=== PATIENT | male | born 1955 | race Caucasian/White ===

== ENCOUNTER 2017-03-02 11:27 | Emergency (ER) | payer MEDICAID ==
[~2017-03-02] VITALS: Ht 172.7 cm; Wt 82.0 kg
[~2017-03-02 11:27] MED LIST: CLIN-79 PO; CLIN-80 PO
[2017-03-02 11:38] VITALS: BP 154/91
[2017-03-02] MEDS ORDERED: erythromycin ophthalmic ointment 1gm tube RIGHTEYE ONE (14:15)
[2017-03-02] MEDS ORDERED: proparacaine 0.5% ophthalmic drops 15ml RIGHTEYE ONE (14:15)
[2017-03-02] MEDS ORDERED: VALA10002 PO (15:46)
[2017-03-02] MEDS ORDERED: OFLO5DRO RIGHTEYE (15:46)
[2017-03-02] MEDS ORDERED: HYDR-565 PO (15:47)
== END 2017-03-02 15:54 | disposition home or self-care (01) ==
LOC: ER 11:27
DX: S05.01XA Injury of conjunctiva and corneal abrasion without foreign body, right eye, initial encounter (principal); Z88.0 Allergy status to penicillin; X58.XXXA Exposure to other specified factors, initial encounter; Y93.9 Activity, unspecified; Y92.9 Unspecified place or not applicable; Y99.9 Unspecified external cause status
CPT/HCPCS: 99283